=== PATIENT | female | born 1960 | race Caucasian/White ===

== ENCOUNTER 2022-02-16 08:24 | Emergency (ER) | payer OTHER, SELFPAY ==
[2022-02-16 08:30] VITALS: BP 175/92; PULSE 79; RESP 20; TEMP 37.1; O2SAT 100
[2022-02-16] MEDS: TETANUS,DIPHTHERIA,AC PERTUSSIS ADULT (0.5 ML) BOOSTRIX IM (09:03)
--- NOTE | 2022-02-16 09:15 | ED.WOUNDLAC ---
HPI - Wound/Laceration General Chief Complaint: Wound/Laceration Stated Complaint: Laceration to Thumb/Right Time Seen by Provider: 02/16/22 09:15 Source: patient Mode of arrival: ambulatory Limitations: no limitations History of Present Illness HPI narrative: 61 y/o female presented for c/o laceration to right thumb after cutting it on a knife while at work today. States she cut the tip off, and she has not been able to stop the bleeding. Does not take blood thinners. Unsure of last tetanus. Related Data Allergies Allergy/AdvReac Type Severity Reaction Status Date / Time No Known Allergies Allergy Verified 02/16/22 09:02 Review of Systems Review of Systems: CONSTITUTIONAL: Denies body aches, fever, chills, or sweats. CARDIOVASCULAR: Denies chest pain, palpitations, or edema. RESPIRATORY: Denies cough or dyspnea. GASTROINTESTINAL: Denies abdominal pain, nausea, vomiting, or diarrhea. SKIN: right thumb laceration MUSCULOSKELETAL: Denies back pain, joint pain, or myalgia. NEUROLOGIC: Denies headache, numbness, tingling, or weakness. PMFSH Comments At time of signature, I have reviewed and agree with nursing past medical, surgical, social and family history unless otherwise noted. Please see nursing chart for further information. There is no relevant family history pertinent to the presenting complaint Exam Narrative: GENERAL: Well-appearing HEAD: Normocephalic, atraumatic. CHEST: Clear to auscultation. HEART: Regular rate and rhythm. SKIN: Warm, dry. Right distal thumb with avulsion, continues to ooze bloody drainage. NEURO: Alert and oriented x3. Course Course Emergency Course: Patient is aware of diagnosis, understands and agrees to treatment plan. Anticipatory guidance given. Patient agrees to follow-up as directed and is aware of reasons to seek care at the emergency department. Portions of this record may have been created with voice recognition software Level of Care: Express Care Visit Vital Signs Vital signs: Vital Signs Temperature 98.7 F 02/16/22 08:30 Pulse Rate 79 02/16/22 08:30 Respiratory Rate 20 02/16/22 08:30 Blood Pressure 175/92 H 02/16/22 08:30 Pulse Oximetry 100 02/16/22 08:30 Oxygen Delivery Room Air 02/16/22 08:30 Temperature 98.7 F 02/16/22 08:30 Pulse Rate 79 02/16/22 08:30 Respiratory Rate 20 02/16/22 08:30 Blood Pressure 175/92 H 02/16/22 08:30 Pulse Oximetry 100 02/16/22 08:30 Oxygen Delivery Room Air 02/16/22 08:30 Reviewed Procedures Laceration right thumb: Size (cm): 0.5 Description: other (avulsion) Depth: simple, single layer Pre-repair: irrigated ====== Skin Level ====== ====== Subcutaneous Layer ====== ====== Muscle Layer ====== ====== Tendon Layer ====== Dressing: Wound was cleansed. Surgicel applied to control bleeding, wound wrapped with gauze and coban. Tolerated well. MDM - Wound/Laceration Differential Diagnosis Differential diagnosis: Likely laceration, abrasion and avulsion of skin Discharge Plan Discharge Clinical Impression: Avulsion of skin Patient Disposition: Home, Self-Care Condition: Stable Instructions: Skin Avulsion (ED) Additional Instructions: Keep dressing in place for 24 hours Then change daily, clean with warm soapy water and dry thoroughly Ok to apply neosporin Tylenol 1000mg every 8 hours as needed Watch for redness, swelling, pain, pus/drainage, fever. Go to the ER for any worsening symptoms or any concerns Follow up with your primary care provider as needed in 3 days You may need frequent visits to your primary care provider for dressing changes and examination of the wound to assess for any complications, such as an infection. Tetanus updated today Prescriptions: New cephalexin 500 mg capsule 500 mg PO Q12H 5 Days Qty: 10 0RF Follow-up/Referrals: Elmer,Bill Perez MD [Primary Care [facility]vi
== END 2022-02-16 09:30 | disposition home or self-care (01) ==
PROVIDERS: Emergency Provider Nurse Practitioner Family; PCP Internal Medicine
DX: S61.001A Unspecified open wound of right thumb without damage to nail, initial encounter (principal); W26.0XXA Contact with knife, initial encounter; Z23 Encounter for immunization
CPT/HCPCS: 90471; 90715; 99213; G0463